=== PATIENT | female | born 1955 | race Two or more races ===

== ENCOUNTER 2021-06-02 05:30 | Day surgery (SDC) | payer OTHER ==
[~2021-06-02 05:30] MED LIST: ACID REDUCER20 M1 PO; AMITRIPTYLINE H50 MG PO; ASPERCREME76.5 GM; GABAPENTIN300 M2 PO; GLIPIZIDE XL10 MG PO; METFORMIN HCL500 M3 PO; MISOPROSTOL200 MCG PO; SIMVASTATIN20 MG PO; TOPROL XL50 M1 PO
[2021-06-02] MEDS ORDERED: IBU600 MG PO (08:23)
== END 2021-06-02 18:30 | disposition home or self-care (01) ==
LOC: CIR.AMB 05:30 → EDBD 07:45 → CIR.AMB 18:30
PROVIDERS: ATTEND Obstetrics & Gynecology Gynecology
DX: N84.0 Polyp of corpus uteri (principal); Z20.822 Contact with and (suspected) exposure to COVID-19